=== PATIENT | male | born 1950 | race Caucasian/White ===

== ENCOUNTER 2024-04-14 18:16 | Emergency (ER) | payer MEDICARE, SELFPAY ==
[2024-04-14] VITALS (15 sets, daily range): BP systolic 109–139; BP diastolic 53–78; PULSE 47–82; RESP 14–24; TEMP 36.6; O2SAT 96–99; BMI 31.2
--- NOTE | 2024-04-14 18:36 | DI.RAD.S_ITS ---
PROCEDURE: XR CHEST 1V INDICATIONS: chest pain TECHNIQUE: One view of the chest was acquired. COMPARISON: None. FINDINGS: Surgical changes and devices: ACDF hardware. Partially visualized right shoulder arthroplasty. Lungs and pleura: Lungs are clear. No pleural effusions or pneumothorax. Mediastinum: Mediastinal contours appear normal. Heart size is normal. Bones and chest wall: No suspicious bony lesions. Overlying soft tissues appear unremarkable. IMPRESSION: No acute cardiopulmonary abnormality is seen. Dictated by: Amador Landis M.D. on 04/14/2024 at 19:31 Approved by: Amador Landis M.D. on 04/14/2024 at 19:32
--- NOTE | 2024-04-14 18:41 | EKG_ITS ---
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
[2024-04-14 19:13] LABS: INR 0.9 (0.9-1.3); Prothrombin Time 10.6 SECONDS (9.4-12.5)
[2024-04-14 19:15] LABS: PTT Partial Thromboplastin Tim 30 SECONDS (25.1-36.5)
[2024-04-14 19:18] LABS: Alanine Aminotransferase 22 IU/L (<50); Albumin 4.4 g/dL (3.5-5.0); Albumin Globulin Ratio 1.5 (1.0-2.8); Alkaline Phosphatase 41 U/L (38-126); Aspartate Aminotransferase 31 IU/L (17-59); Bilirubin Total 0.4 mg/dL (0.2-1.3); Blood Urea Nitrogen 29 mg/dL (9-20); Calcium 9.3 mg/dL (8.4-10.2); Carbon Dioxide 26 mmol/L (22-32); Chloride 105 mmol/L (98-107); Creatine Kinase 109 U/L (55-170); Estimated Glomerular Filt Rate > 60 mL/min (>60); Globulin 2.9 g/dL (1.7-4.1); Glucose 112 mg/dL (80-110); HEMOLYSIS < 15 (0-50); Lipase 91 U/L (23-300); Magnesium 1.9 mg/dL (1.6-2.3); Potassium 4.4 mmol/L (3.4-5.1); Sodium 137 mmol/L (137-145); Total Protein 7.3 g/dL (6.3-8.2)
[2024-04-14 19:19] LABS: Add Manual Diff / Slide Review NO; Basophils Absolute Auto 0 /uL (0-100); Basophils Percent Auto 0.5 % (0-2); Eosinophils Absolute Auto 100 /uL (0-450); Eosinophils Percent Auto 0.8 % (2-4); Hematocrit 36.6 % (41-53); Hemoglobin 12.4 g/dL (13.5-17.5); Lymphocytes Absolute Auto 1800 /uL (1100-4500); Lymphocytes Percent Auto 24.5 % (25-40); Mean Corpuscular HGB Conc 33.7 % (30-36); Mean Corpuscular Hemoglobin 33.3 PG (26-34); Mean Corpuscular Volume 98.6 fL (80-100); Monocytes Absolute Auto 500 /uL (0-900); Monocytes Percent Auto 7.3 % (3-14); Neutrophils Absolute Auto 5000 /uL (1500-7000); Neutrophils Percent Auto 66.9 % (50-75); Platelet Count 221 X10^3/uL (150-400); Red Blood Cell Count 3.72 X10^6/uL (4.5-5.9); Red Cell Distribution Width 13.7 % (11.6-14.8); White Blood Cell Count 7.4 X10^3/uL (4.5-11.0)
[2024-04-14 19:29] LABS: NT-proBNP (BNP-Adult 18+) 456 pg/mL (<125); Troponin I < 0.012 ng/mL (0.01-0.034)
[2024-04-14 20:37] LABS: Free T4, Direct Thyroxine 1.21 ng/dL (0.78-2.19)
[2024-04-14 20:51] LABS: TSH w/ Reflex to FT4 0.26 uIU/mL (0.47-4.68)
[2024-04-14] MEDS: SODIUM CHLORIDE 0.9% 1,000 ML 1000 ML IV (21:49)
--- NOTE | 2024-04-14 22:46 | ED_ITS ---
HPI - Dizziness General Chief Complaint: Dizziness Stated Complaint: dizziness, low blood pressure Time Seen by Provider: 04/14/24 21:35 Source: patient Mode of arrival: Ambulatory Limitations: no limitations History of Present Illness HPI Narrative: 73-year-old male history of hypertension, dyslipidemia, hypothyroidism, BPH with recently diagnosed prostate cancer. Patient presents with complaint of dizziness. Patient states he is chronic dizziness typically worse when he is upright and moving. He has been following with his physician for some time but today has a little bit worse even with being seated which is atypical. Noted his blood pressure was in the 90 systolic, states he normally runs 110s to 120s. Patient denies any other symptoms. No syncope. No headaches, no fevers, no chills, no cold cough or congestion, no chest pain or shortness of breath, no nausea or vomiting, no new issues with bowel movements, no new issues with urination. No new swelling extremities. Patient has had not had any recent medication changes. Was noted his heart rate has running into the 40s to 50s here intermittently today and patient notes he normally runs about 60-70 for his heart rate. He is on diltiazem and lisinopril, levothyroxine, tamsulosin, bicalutamide for his medications. He has not on any anticoagulation. Has had prior bilateral hip surgery, right shoulder surgery, partial thyroidectomy, cervical fusion, back surgeries. No prior cardiac surgeries or interventions. Quit smoking many years ago, 1 or 2 drinks nightly of alcohol, no recreational drugs. They are visiting the area until June when they return to [place]. Primary care is in [place]. Related Data Home Medications Medication Instructions Recorded Confirmed bicalutamide 50 mg tablet 50 mg PO DAILY 04/14/24 04/14/24 diltiazem HCl 240 mg capsule,24 240 mg PO DAILY 04/14/24 04/14/24 hr,extended release levothyroxine 88 mcg tablet 44 mcg PO QAM 04/14/24 04/14/24 lisinopril 20 mg tablet 40 mg PO DAILY blood pressure 04/14/24 04/14/24 Allergies Allergy/AdvReac Type Severity Reaction Status Date / Time No Known Drug Allergies Allergy Verified 04/14/24 18:34 Review of Systems Review of Systems ROS Unobtainable: All systems reviewed & are unremarkable except as noted in HPI and below Patient History Social History Smoking Status: Never smoker Smoking Status: Never smoker alcohol intake frequency: a few times a week Substance Use Type: does not use Exam Narrative Exam Narrative: GEN: well nourished, well appearing male, alert and oriented x 3, patient appears to be in mild distress. HEENT: Atraumatic, pupils are equal round reactive to light, extraocular movements are intact, nares are clear, there is no conjunctival pallor. Throat is clear without any exudates, erythema, tonsillar enlargement or uvular deviation HEART: Regular rate and rhythm without murmur, clicks, rubs. NPulses are equal in upper and lower extremities, no edema bilateral lower extremities. LUNGS:Lungs clear to auscultation, no wheezes, rales, crackles, chest moves symmetrically ABD:bowel sounds normal, soft, non-tender, no guarding, rebound, rigidity, no masses noted, no hepatosplenomegaly :No CVA tenderness MSCL: Non-tender, no muscle atrophy, muscles strength 5/5 upper and lower extremities, full range of motion, normal gait NEURO:CN 2-12 intact, sensation normal SKIN: No rash, erythema or other skin changes. Initial Vital Signs Initial Vital Signs: Vital Signs Temperature 98 F 04/14/24 18:26 Pulse Rate 82 04/14/24 18:26 Respiratory Rate 17 04/14/24 18:26 Blood Pressure 139/62 04/14/24 18:26 Pulse Oximetry 98 04/14/24 18:26 Oxygen Delivery Method Room Air 04/14/24 18:26 Course Orders Ordered: Discontinued Medications Sodium Chloride (Normal Saline 0.9%) 1,000 mls @ 1,000 mls/hr IV BOLUS ONE Stop: 04/14/24 22:34 Last Infusion: 04/14/24 22:24 Dose: Infused Documented By: Admin: 04/14/24 21:49 Dose: 1,000 mls/hr Documented By: YRN Vital Signs Vital signs: Vital Signs - 8 hr 04/14/24 20:30 04/14/24 20:30 04/14/24 20:56 Pulse Rate 52 L 59 L Pulse Rate [Orthostatic Lying] Pulse Rate [Orthostatic Sitting] Pulse Rate [Orthostatic Standing] Respiratory Rate Blood Pressure 110/53 L Blood Pressure [Orthostatic Lying] Blood Pressure [Orthostatic Sitting] Blood Pressure [Orthostatic Standing] Pulse Oximetry 97 99 04/14/24 20:56 04/14/24 21:00 04/14/24 21:30 Pulse Rate 49 L 49 L Pulse Rate [Orthostatic Lying] Pulse Rate [Orthostatic Sitting] Pulse Rate [Orthostatic Standing] Respiratory Rate 21 21 Blood Pressure 109/73 Blood Pressure [Orthostatic Lying] Blood Pressure [Orthostatic Sitting] Blood Pressure [Orthostatic Standing] Pulse Oximetry 99 97 04/14/24 22:00 04/14/24 22:30 04/14/24 22:36 Pulse Rate 48 L 48 L 47 L Pulse Rate [Orthostatic Lying] Pulse Rate [Orthostatic Sitting] Pulse Rate [Orthostatic Standing] Respiratory Rate 24 24 21 Blood Pressure Blood Pressure [Orthostatic Lying] Blood Pressure [Orthostatic Sitting] Blood Pressure [Orthostatic Standing] Pulse Oximetry 98 97 98 04/14/24 22:36 04/14/24 23:00 04/14/24 23:01 Pulse Rate 50 L Pulse Rate [Orthostatic Lying] Pulse Rate [Orthostatic Sitting] Pulse Rate [Orthostatic Standing] Respiratory Rate 23 Blood Pressure 128/59 L 122/60 Blood Pressure [Orthostatic Lying] Blood Pressure [Orthostatic Sitting] Blood Pressure [Orthostatic Standing] Pulse Oximetry 97 04/14/24 23:01 04/14/24 23:53 Pulse Rate 51 L Pulse Rate [Orthostatic Lying] 50 L Pulse Rate [Orthostatic Sitting] 60 Pulse Rate [Orthostatic Standing] 76 Respiratory Rate 23 Blood Pressure Blood Pressure [Orthostatic Lying] 125/60 Blood Pressure [Orthostatic Sitting] 124/58 L Blood Pressure [Orthostatic Standing] 128/73 Pulse Oximetry 97 MDM - Dizziness Lab Data 04/14/24 18:35 04/14/24 18:35 Labs: Lab Results 04/14/24 04/14/24 Range/Units 18:35 18:39 WBC 7.4 (4.5-11.0) X10^3/uL RBC 3.72 L (4.5-5.9) X10^6/uL Hgb 12.4 L (13.5-17.5) g/dL Hct 36.6 L (41-53) % MCV 98.6 (80-100) fL MCH 33.3 (26-34) PG MCHC 33.7 (30-36) % RDW 13.7 (11.6-14.8) % Plt Count 221 (150-400) X10^3/uL Neut % (Auto) 66.9 (50-75) % Lymph % (Auto) 24.5 L (25-40) % [place] % (Auto) 7.3 (3-14) % Eos % (Auto) 0.8 L (2-4) % Baso % (Auto) 0.5 (0-2) % Neut # (Auto) 5000 (9501-0165) /uL Lymph # (Auto) 1800 (8727-7508) /uL [place] # (Auto) 500 (0-900) /uL Eos # (Auto) 100 (0-450) /uL Baso # (Auto) 0 (0-100) /uL PT 10.6 (9.4-12.5) SECONDS INR 0.9 (0.9-1.3) APTT 30 (25.1-36.5) SECONDS Sodium 137 (137-145) mmol/L Potassium 4.4 (3.4-5.1) mmol/L Chloride 105 (98-107) mmol/L Carbon Dioxide 26 (22-32) mmol/L BUN 29 H (9-20) mg/dL Creatinine 1.21 (0.66-1.25) mg/dL Estimated GFR > 60 (>60) mL/min BUN/Creatinine Ratio 24.0 H (6-22) Glucose 112 H (80-110) mg/dL Calcium 9.3 (8.4-10.2) mg/dL Magnesium 1.9 (1.6-2.3) mg/dL Total Bilirubin 0.4 (0.2-1.3) mg/dL AST 31 (17-59) IU/L ALT 22 (<50) IU/L Alkaline Phosphatase 41 (38-126) U/L Total Creatine Kinase 109 (55-170) U/L Troponin I < 0.012 (0.01-0.034) ng/mL NT-Pro-B Natriuret Pep 456 H (<125) pg/mL Total Protein 7.3 (6.3-8.2) g/dL Albumin 4.4 (3.5-5.0) g/dL Globulin 2.9 (1.7-4.1) g/dL Albumin/Globulin Ratio 1.5 (1.0-2.8) Lipase 91 (23-300) U/L TSH 0.26 L (0.47-4.68) uIU/mL Free T4 1.21 (0.78-2.19) ng/dL Urine Dip Bedside Urine Glucose Negative Bedside Urine Bilirubin - Negative Bedside Urine Ketone - Negative Urine Specific [place] 1.025 Bedside Urine Occult Blood - Negative Bedside Urine pH 5.5 Bedside Urine Protein - Negative Bedside Urine Urobilinogen - Negative Bedside Urine Nitrite - Negative Bedside Urine Leukocytes - Negative Esterase ECG Data Attestation: I personally reviewed and interpreted this ECG as follows: Prior ECG tracings: not available for review Interpretation: Sinus rhythm rate of 65 CA 136 QRS of 96 QTC of 424, no acute ST elevation depression noted. MDM Narrative Medical decision making narrative: 73-year-old male with complaint of dizziness, chronic but worse in the last day. Noted to have a systolic blood pressure in the 90s at home. Has been very warm here but patient is also on lisinopril and diltiazem. Heart rates was running 40 to 50s on telemetry was in the 60s on EKG. Patient does not appear to have any arrhythmias. Labs overall are appropriate. Discussed with patient and family holding diltiazem to see if this improves symptoms if they are persistent. White count of 7.4, hemoglobin of 12.4, platelets of 221. Coags are negative, electrolytes are overall appropriate BUN 29 creatinine is 1.21, glucose is 112 LFTs are negative troponins less than 0.012 BNP is 456. TSH is 0.26 but free T4 is 1.21 Chest x-ray shows no acute change EKG shows sinus rhythm Point of care urine is negative Discharge Plan Departure Patient Disposition: Home Clinical Impression: Dizziness Instructions: DI for Dizziness-Nonvertigo Activity Restrictions/Additional Instructions: Follow-up for recheck as needed. Your heart rate has been somewhat low while you have been here, if you continued to have dizziness with low blood pressures I would hold your diltiazem. Please return for new or worsening symptoms, passing out, increasing dizziness, new chest pain or shortness of breath, persistent vomiting, new swelling of extremities or other new or concerning changes. Prescriptions: No Action bicalutamide 50 mg tablet 50 mg PO DAILY lisinopril 20 mg tablet 40 mg PO DAILY diltiazem HCl 240 mg capsule,extended release 24 hr 240 mg PO DAILY levothyroxine 88 mcg tablet 44 mcg PO QAM Referrals: Miscellaneous,Doctor, MD [Primary Care Provider] - Stand Alone Forms: Patient Portal/API
== END 2024-04-14 23:59 | disposition home or self-care (01) ==
PROVIDERS: Emergency Provider Emergency Medicine
DX: R42 Dizziness and giddiness (principal); R03.1 Nonspecific low blood-pressure reading
CPT/HCPCS: 36415; 71045; 80053; 81003; 82550; 83690; 83735; 83880; 84439; 84443; 84484; 85025; 85610; 85730; 93005; 99284